=== PATIENT | female | born 1930 | race Caucasian/White ===

== ENCOUNTER 2017-02-05 18:02 | Emergency (ER) | payer OTHER ==
[~2017-02-05] VITALS: Ht 160 cm; Wt 78.0 kg
[~2017-02-05 18:02] MED LIST: ASPI81CH43; BISO10TA; DORZ2SOL15; LATA0.00; LISI40TA; SIMV-13
[2017-02-05] MEDS ORDERED: FLEET ENEMA(ADULT) 135 ML PR ONE ×2 (18:45→20:45)
[2017-02-05 18:49] LABS: Basophils # (auto) 0 uL; Basophils % (auto) 0.3 % (0.0-2.0); Eosinophils # (auto) 0 uL; Eosinophils % (auto) 0.3 % (0.0-7.0); Hematocrit 42.8 % (36.0-46.0); Hemoglobin 14.4 g/dL (12.2-16.2); Lymphocytes # (auto) 1.2 uL; Mean Corpuscular Hemoglobin 30.6 pg (28.0-32.0); Mean Corpuscular Hgb Conc. 33.8 g/dL (32.0-36.0); Mean Corpuscular Volume 90.7 fL (80.0-100.0); Mean Platelet Volume 8.3 fL (7.4-10.4); Monocytes # (auto) 0.8 uL; Monocytes % (auto) 7.7 % (0.0-12.0); Neutrophils # (auto) 8.7 uL; Neutrophils % (auto) 80.7 % (37.0-80.0); Platelet Count (auto) 238 10^3/uL (140-450); Red Cell Distribution Width 13.6 % (11.6-16.0); White Blood Cell 10.7 10^3/uL (4.4-10.8)
[2017-02-05 19:11] LABS: Albumin 4.2 g/dL (3.4-5.0); Alkaline Phosphatase 79 U/L (45-117); Anion Gap 16 (5-15); Aspartate Aminotransferase 16 U/L (15-37); BUN/Creatinine Ratio 16.9; Blood Urea Nitrogen 20 mg/dL (7-18); Calcium 9.3 mg/dL (8.5-10.1); Carbon Dioxide 23 mmol/L (21-32); Chloride 102 mmol/L (98-107); GFR African American 56 mL/min; GFR Non-African American 46 mL/min; Glucose 116 mg/dL (74-106); Potassium 3.2 mmol/L (3.5-5.1); Sodium 141 mmol/L (136-145); Total Protein 7.3 g/dL (6.4-8.2)
[2017-02-05] MEDS ORDERED: LACTULOSE 20Gm/30ML SOLN PO ONE ×2 (20:30→23:30)
[2017-02-06] MEDS ORDERED: FLEET ENEMA(ADULT) 135 ML PR ONE ×3 (00:15→02:15)
[2017-02-06 06:31] VITALS: BP 119/55
== END 2017-02-06 07:43 | disposition home or self-care (01) ==
LOC: ER 18:09
DX: K59.00 Constipation, unspecified (principal); R10.32 Left lower quadrant pain; E78.5 Hyperlipidemia, unspecified; I48.91 Unspecified atrial fibrillation; I10 Essential (primary) hypertension; Z88.0 Allergy status to penicillin; Z79.82 Long term (current) use of aspirin; Z79.899 Other long term (current) drug therapy
CPT/HCPCS: 36415; 74176; 80053; 83690; 84484; 85025; 93005; 94761